=== PATIENT | male | born 1960 | race Caucasian/White ===

== ENCOUNTER → 2017-08-25 | Outpatient (CLI) | payer BC | END | disposition home or self-care (01) | LOC: RAD 12:22 | DX: R09.89 Other specified symptoms and signs involving the circulatory and respiratory systems (principal); J32.9 Chronic sinusitis, unspecified ==

== ENCOUNTER → 2017-09-13 | Outpatient (CLI) | payer BC ==
--- NOTE | ~2017-09-13 | PF ---
[place], [place] PULMONARY FUNCTION TEST NAME: HEATHER CHOU UNIT #: [id number] ROOM: DOCTOR: YULISA BRASHER MD BIRTHDATE: [birth year] DOS: 09/13/2017 ORDERED BY: Moon James NP. HISTORY: The patient recorded 56-year-old outpatient, male, height of 73 inches, weight of 158 pounds, BMI 20.8 with a diagnosis of COPD. The patient was reported symptoms of rare wheezing and dyspnea with hills and stairs, chronic tobacco use, half a pack of cigarettes per day for past 30 years were reported. SPIROMETRY: The FVC was noted as 6.06 liters and 111% predicted value normal. FEV1 was 3.86 liters, 96% predicted value normal as well. The ratio of FEV1/FVC postbronchodilator noted 69%. No changes occurred postbronchodilator test. Flow volume loop was normal. LUNG VOLUME: Thoracic gas volume recorded 103%, residual volume 89%, total lung capacity 105%. Lung volumes were noted normal. Lung diffusion was noted essentially low normal range at 75%. Resistance passive conductance noted normal. FINAL IMPRESSION: Normal pulmonary function test. YULISA ARTEAGA MD CM:PFREPORT:PULMONARY FUNCTION TEST [id number] YULISA SWANN MD
== END | disposition home or self-care (01) ==
LOC: CP 10:18
DX: J44.9 Chronic obstructive pulmonary disease, unspecified (principal)

== ENCOUNTER 2017-10-26 12:26 | Inpatient (IN) | payer BC ==
[~2017-10-26] VITALS: Ht 185.4 cm; Wt 68.3 kg
[2017-10-26 12:26] VITALS: BP 129/89
[2017-10-26 12:56] LABS: BASO # 0.1 10*3/uL (0.0-0.1); BASO % 1.2 % (0.0-1.0); EOS # 0.4 10*3/uL (0.0-0.4); EOS % 4.5 % (1.0-4.0); HEMATOCRIT 41.2 % (42.0-52.0); LYMPH # 2.4 10*3/uL (1.3-4.4); LYMPH % 28.4 % (27.0-41.0); MEAN CELL VOLUME 91.8 fl (80.0-94.0); MEAN CORPUSCULAR HGB 31.2 pg (27.0-31.0); MONO # 0.5 10*3/uL (0.1-1.0); MONO % 5.8 % (3.0-9.0); NEUT # 5.1 10*3/uL (2.3-7.9); NEUT % 59.9 % (47.0-73.0); PLATELET COUNT AUTOMATED 220 10*3/uL (130-400); RED BLOOD COUNT 4.49 10*6/uL (4.50-5.90); RED CELL DISTRI WIDTH 13.4 % (0-14.5); WHITE BLOOD COUNT 8.6 10*3/uL (4.8-10.8)
[2017-10-26 13:13] LABS: ALKALINE PHOSPHATASE 70 U/L (45-117); BUN 14 mg/dl (7-24); CHLORIDE 107 mmol/L (98-107); CREATININE 0.87 mg/dL (0.70-1.30); POTASSIUM 4.1 mmol/L (3.5-5.1); SGOT/AST 14 IU/L (3-35); SGPT/ALT 19 U/L (12-78); SODIUM 140 mmol/L (136-145); TOTAL PROTEIN 7.3 gm/dL (6.4-8.2)
[2017-10-26 13:24] LABS: TROPONIN I < 0.015 ng/ml (<0.045)
[2017-10-26 13:42] VITALS: BP 104/71
[2017-10-26 15:18] VITALS: BP 104/64
[2017-10-26 16:10] VITALS: BP 110/72
[2017-10-26 20:00] VITALS: BP 110/63; BP 140/62
[2017-10-27] VITALS: BP 101/65
[2017-10-27 07:06] LABS: BASO # 0.1 10*3/uL (0.0-0.1); BASO % 1.6 % (0.0-1.0); EOS # 0.6 10*3/uL (0.0-0.4); EOS % 8.6 % (1.0-4.0); HEMATOCRIT 40.5 % (42.0-52.0); LYMPH # 2.8 10*3/uL (1.3-4.4); LYMPH % 37.4 % (27.0-41.0); MEAN CELL VOLUME 92.7 fl (80.0-94.0); MEAN CORPUSCULAR HGB CONC 34.6 g/dl (33.0-37.0); MEAN PLATELET VOLUME 10.1 fl (9.6-12.3); MONO # 0.5 10*3/uL (0.1-1.0); NEUT # 3.4 10*3/uL (2.3-7.9); PLATELET COUNT AUTOMATED 204 10*3/uL (130-400); RED BLOOD COUNT 4.37 10*6/uL (4.50-5.90); RED CELL DISTRI WIDTH 13.5 % (0-14.5); WHITE BLOOD COUNT 7.5 10*3/uL (4.8-10.8)
[2017-10-27 07:27] LABS: ALBUMIN 3.6 gm/dl (3.1-4.5); BUN 12 mg/dl (7-24); CHLORIDE 107 mmol/L (98-107); POTASSIUM 4.3 mmol/L (3.5-5.1); SODIUM 140 mmol/L (136-145)
[2017-10-27 07:34] LABS: ALKALINE PHOSPHATASE 62 U/L (45-117); CHOLESTEROL 147 mg/dL (<200); CREATININE 0.74 mg/dL (0.70-1.30); FREE T4 1.09 ng/dl (0.76-1.46); HDL CHOLESTEROL 46 mg/dl (40-60); LDL CHOLESTEROL 90 mg/dL (9-159); PHOSPHOROUS 3.1 mg/dL (2.5-4.9); SGOT/AST 9 IU/L (3-35); SGPT/ALT 17 U/L (12-78); TOTAL PROTEIN 6.9 gm/dL (6.4-8.2); TRIGLYCERIDES 53 mg/dl (<150); VLDL CHOLESTEROL 11 mg/dL (6-40)
[2017-10-27 08:56] LABS: VITAMIN D, 25-HYDROXY 21.3 ng/mL (30-100)
== END 2017-10-27 08:00 | disposition left against medical advice (07) | DRG 313 ==
LOC: ED 12:26 → EDHOLD 15:11 → 4E 15:38
PROVIDERS: Emergency Medicine; Hospitalist
DX: R07.89 Other chest pain (principal); J30.89 Other allergic rhinitis; M25.511 Pain in right shoulder; J32.0 Chronic maxillary sinusitis; M47.812 Spondylosis without myelopathy or radiculopathy, cervical region; Z53.21 Procedure and treatment not carried out due to patient leaving prior to being seen by health care provider; R63.4 Abnormal weight loss; Z72.0 Tobacco use; Z71.6 Tobacco abuse counseling; Z68.1 Body mass index [BMI] 19.9 or less, adult; Z98.52 Vasectomy status; Z90.49 Acquired absence of other specified parts of digestive tract; Z82.49 Family history of ischemic heart disease and other diseases of the circulatory system

== ENCOUNTER 2020-03-06 14:13 | Emergency (ER) | payer BC ==
[~2020-03-06] VITALS: Ht 185.4 cm; Wt 63.5 kg
[2020-03-06 15:17] LABS: BASO # 0.1 10*3/uL (0.0-0.1); BASO % 0.8 % (0.0-1.0); EOS % 0.1 % (1.0-4.0); HEMATOCRIT 44.4 % (42.0-52.0); LYMPH # 0.9 10*3/uL (1.3-4.4); MEAN CELL VOLUME 93.1 fl (80.0-94.0); MEAN CORPUSCULAR HGB 31.4 pg (27.0-31.0); MEAN CORPUSCULAR HGB CONC 33.8 g/dl (33.0-37.0); MONO # 0.3 10*3/uL (0.1-1.0); MONO % 4.2 % (3.0-9.0); NEUT # 6.7 10*3/uL (2.3-7.9); NEUT % 83.6 % (47.0-73.0); PLATELET COUNT AUTOMATED 201 10*3/uL (130-400); RED BLOOD COUNT 4.77 10*6/uL (4.50-5.90); RED CELL DISTRI WIDTH 13.7 % (0-14.5); WHITE BLOOD COUNT 7.9 10*3/uL (4.8-10.8)
[2020-03-06 15:32] LABS: ALKALINE PHOSPHATASE 64 U/L (45-117); BUN 16 mg/dl (7-24); CHLORIDE 109 mmol/L (98-107); CREATININE 0.91 mg/dL (0.70-1.30); LIPASE 63 U/L (73-393); POTASSIUM 3.9 mmol/L (3.5-5.1); SGOT/AST 20 IU/L (3-35); SGPT/ALT 32 U/L (12-78); SODIUM 139 mmol/L (136-145); TOTAL PROTEIN 7.7 gm/dL (6.4-8.2)
[2020-03-06] MEDS ORDERED: IMODIUM A-D2 M2 PO (17:26)
[2020-03-06] MEDS ORDERED: ZOFRAN4 MG PO (17:26)
== END 2020-03-06 17:59 | disposition home or self-care (01) ==
LOC: ED 14:13
PROVIDERS: Emergency Medicine
DX: K52.9 Noninfective gastroenteritis and colitis, unspecified (principal); F17.200 Nicotine dependence, unspecified, uncomplicated